=== PATIENT | male | born 1970 | race Two or more races ===

== ENCOUNTER 2017-08-07 11:02 | Observation (INO) | payer MEDICAID ==
[~2017-08-07] VITALS: Ht 182.9 cm; Wt 96.0 kg
[2017-08-07 11:55] LABS: DAU SCREEN DISCLAIMER
[2017-08-07 11:59] LABS: HEMATOCRIT 49.6 % (39.2-51.8); WHITE BLOOD COUNT 8.2 x10^3/uL (3.4-10)
[2017-08-07 12:01] LABS: BLOOD UREA NITROGEN 12 mg/dL (7-18)
[2017-08-07 12:08] LABS: ACETAMINOPHEN < 2 mcg/mL (10-30)
[2017-08-07] MEDS ORDERED: LORazepam 1MG TABLET PO PRN (17:00)
[2017-08-07] MEDS ORDERED: POLYETHYLENE GLYCOL 17 GM PACKET PO PRN (17:00)
[2017-08-07] MEDS ORDERED: ACETAMINOPHEN 325 MG TABLET PO PRN (17:00)
[2017-08-07] MEDS ORDERED: BISACODYL 10 MG SUPP PR PRN (17:00)
[2017-08-07] MEDS ORDERED: ENOXAPARIN 40 MG/0.4 ML SQ SCH (18:00)
[2017-08-07 19:44] VITALS: BP 106/70
[2017-08-07] MEDS ORDERED: TRAZODONE 50MG TABLET PO PRN (21:00)
[2017-08-07] MEDS ORDERED: DOCUSATE 100 MG CAPSULE PO PRN (21:00)
[2017-08-08 08:21] VITALS: BP 130/82
[2017-08-08] MEDS ORDERED: NICOTINE 14MG/24 HR PATCH.TD24 TD SCH (14:00)
== END 2017-08-08 15:39 ==
LOC: ED 13:50 → EDIP 13:53 → INTOOBSV 13:53 → 3E 16:49
PROVIDERS: ADMIT Internal Medicine; ATTEND Internal Medicine
DX: R45.851 Suicidal ideations (principal); F33.2 Major depressive disorder, recurrent severe without psychotic features; F17.200 Nicotine dependence, unspecified, uncomplicated; I10 Essential (primary) hypertension; Z59.0 Homelessness; Z80.8 Family history of malignant neoplasm of other organs or systems
CPT/HCPCS: 36415; 80048; 80307; 80329; 82040; 84443; 85025; 99285; G0378; G0479; G0480